=== PATIENT | male | born 1970 | race Caucasian/White ===

== ENCOUNTER 2025-05-29 08:46 | Outpatient (CLI) | payer BC, SELFPAY ==
[2025-05-29 13:16] LABS: Microscopic, Urine URINE MICROSCOPIC (MICROSCOPIC)
[2025-05-29 14:09] LABS: Hematocrit 46.2 % (42.0-52.0); Hemoglobin 14.9 g/dL (14.1-18.0); Immature Granulocytes % 0.4 %; Mean Corpuscular HGB Conc 32.3 g/dL (31.8-35.4); Mean Corpuscular Hemoglobin 29.5 pg (27.0-31.2); Mean Corpuscular Volume 91.5 fl (80-94); Nucleated Red Blood Cells % 0 %; Platelet Count 255 K/mm3 (142-424); Red Blood Count 5.05 M/mm3 (4.60-6.20); Red Cell Distribution Width-SD 46.3 fL; White Blood Count 5.3 K/mm3 (4.8-10.8)
[2025-05-29 14:35] LABS: Albumin Level 4.5 g/dl (3.5-5.0); Chloride 101 mmol/L (98-107); Potassium 4.8 mmoL/L (3.5-5.1); Sodium 135 mmol/L (136-145)
[2025-05-29 14:38] LABS: Alanine Aminotransferase 33 U/L (12-78); Albumin/Globulin Ratio 2.3 (1.1-1.8); Alkaline Phosphatase 59 U/L (38-126); Anion Gap 11.8 mEq/L (5-15); Aspartate Amino Transferase 31 U/L (17-59); Bilirubin,Total 0.2 mg/dl (0.2-1.3); Blood Urea Nitrogen 19 mg/dl (9-20); Carbon Dioxide 27 mmol/L (22.0-30.0); Cholesterol 150 mg/dl (140-200); Creatinine,Serum 0.90 mg/dl (0.66-1.25); Estimated Glomerular Filt Rate 88 ml/min (>60); GFR (African American) 106 ML/MIN (>60); Globulin 2.0 g/dL (1.3-3.2); Glucose 77 mg/dl (74-100); Iron 107 ug/dL (49-181); Total Protein,Serum 6.5 g/dl (6.3-8.2); Triglycerides 54 mg/dl (30-150)
[2025-05-29 14:39] LABS: Calcium 8.8 mg/dl (8.4-10.2); HDL Cholesterol 45 mg/dl (40-60)
[2025-05-29 14:58] LABS: 25-OH Vitamin D, Total 43.0 ng/mL (30-100); Free T4 (Free Thyroxine) 1.50 ng/dl (0.78-2.19)
[2025-05-29 15:04] LABS: Total Iron Binding Capacity 272 ug/dL (261-462)
[2025-05-29 15:10] LABS: Thyroid Stimulating Hormone 0.72 uIU/mL (0.465-4.68)
[2025-05-29 15:14] LABS: Ferritin 66.1 ng/ml (17.9-464)
[2025-05-29 15:32] LABS: Hepatitis C Ab Qual. W/ RFX NEGATIVE (Negative)
[2025-05-29 17:03] LABS: Vitamin B12 483 pg/mL (239-931)
[2025-05-29 17:46] LABS: Hemoglobin A1C 5.3 % (4.0-6.0)
[2025-05-29 19:04] LABS: Bilirubin,Urine Negative (Negative); Color,Urine YELLOW (Yellow); Glucose,Urine (UA) Negative (Negative); Ketones,Urine TRACE (Negative); Leukocyte Esterase,Urine Negative (Negative); PH,Urine 6.0 (5.0-8.5); Protein,Urine Negative (Negative); Specific Gravity, Urine 1.025 (1.005-1.030); Urobilinogen,Urine 0.2 EU/dl (0.2)
[2025-05-29 19:24] LABS: Amorphous Sediment,Urine 3+ /lpf; Bacteria,Urine 2+ /lpf
[2025-05-30 09:20] LABS: Testosterone,Total 521 ng/dL (264-916)
--- OUTSIDE RECORDS SUMMARY | 2025-05-30 13:45 | XMS_ITS | Clinical Summary ---
[facility] Organization [facility] Address [address] [place] [address] Care Team Providers Care Gastroenterology Technician Name Role Phone Jo Bacon APRN Primary Care Provide r Allergies Active Allergy Reactions Criticality Noted Date Comments Amoxicillin Other (See Comments) 05/13/2016 Severe Headache Medications fluticasone (FLONASE) 50 MCG/ACT nasal spray into each nostril daily. 03/20/2013 Active lisinopril (PRINIVIL,ZESTR IL) 20 MG tablet Take 1 tablet by mouth Daily. 12/31/2022 Active Social History Tobacco Use Types Packs/Day Years Used Date Smoking Tobacco: Never Abuse Screen Answer Date Recorded Unsafe at Home or Work/School Not on file Feels Threatened by Someone? Not on file 08/2023 Does Anyone Keep You from Co ntacting Others or Doint Things Outside the Home? Not on file 08/03/2023 Physical Sign of Abuse Present Not on file 1 Housing Stability Answer Date Recorded Current Living Arrangements Not on file 07/24 Potentially Unsafe Housing Conditions Not on jacob e 08/03/2023 Family and Community Support Answer Mil e Recorded Help with Day-to-Day Activities Not on file 08/03/2023 Lonely or Isolated Not on file 08/03/2023 Employment Answer Date Recorded Do you want help finding or keeping work or a bert b? Not on file 08/03/2023 Disabilities Answer Date Recorded Concentrating, Remembering, or Making Decisions Difficulty Not on file 08/03/2023 Doing Errands Independently Difficulty Not on fi le 08/03/2023 Education Answer Date Recorded Help with school or training? Not on file Preferred Language Not on file 08/03/2023 Sex and Gender Information Value Date Recorded Sex Assigned at Not on file Legal Sex Male 11:56 AM EDT Gender Identity Not on file Sexual Orientation Not on file Last Filed Vital Signs Vital Sign Reading Time Taken Comments Blood Pressure 132/85 04/26/2023 6:30 PM EDT Pulse 66 04/26/2023 6:30 PM EDT Temperature 36.7 C (98 F) 04/26/2023 6:30 PM EDT Respiratory Rate 16 04/26/2023 6:30 PM EDT Oxygen Saturation 97% 04/26/2023 6:30 PM EDT Inhaled Oxygen Concentration - - Weight 99.8 kg (220 lb) 04/26/2023 6:30 PM EDT Height 185.4 cm (6' 1 ) 04/26/2023 6:30 PM EDT Body Mass Index 29.03 04/26/2023 6:30 PM EDT Plan of Treatment Health Maintenance Due Date Last Done Comments ANNUAL PHYSICAL 1971 HEPATITIS C SCREENING 1971 COLOGUARD 2016 COLON CANCER SCREENING 5 YEAR SIGMOIDOSCOPY 2016 COLONOSCOPY [address] CANCER SCREENING 2016 CT COLONOGRAPHY 2016 FECAL OCCULT BLOOD TEST 2016 FIT Testing (1 year) 2016 Pneumococcal Vaccine 50+ (1 of 1 - PCV) 2021 ZOSTER VACCINE (1 of 2) 2021 COVID-19 Vaccine (1 - season) 2024 INFLUENZA VACCINE 07/24/2025 TDAP/TD VACCINES (2 - Td or Tdap) 04/25/[id number] [facility] PPO Member Subscriber Plan / Payer (Ef fective 2012-Present) Name:Ran Adrian Relation to Subscriber:Self Name:Ran Adrian Payer ID:[id number] (NAIC) Type:Not on file Address: [address] [place] [id number] Care Teams Gastroenterology Technician Relationship Specialty Start Date End Date Jo Bacon APRN PCP - General Family Medicine 05/13/16
--- OUTSIDE RECORDS SUMMARY | 2025-05-30 13:45 | XMS_ITS | Clinical Summary ---
Author Organization [facility] Address [address] [place] [address] Care Team Providers Care Art Tracer Name Role Phone Gregoria Henderson NP Primary Care Provider Allergies Active Allergy Reactions Criticality Noted Date Comments Amoxicillin Headache 05/13/2016 Annotation - [id number]: painful headaches Severe Headache Medications cetirizine (ZyrTEC) 10 MG tablet Take 10 mg by mouth 1 (one) time each day. Active tadalafil (Cialis) 5 MG tablet Take 5 mg by mouth 1 (one) time each day. Active lisinopril 20 MG tabletIndicatio ns:Hypertension Take 1 tablet by mouth in the morning. 90 tablet 1 5 Active fluticasone (Flonase) 50 MCG/ACT nasal spray Administer 1 spray into each nostril in the morning. Shake gently. Before first use, prime pump. After use, clean tip and replace cap. 48 g 1 5 Active Active Problems Problem Noted Date Diagnosed Date Body mass index 25-29 - overweight 12/23/2023 Chews tobacco 12/23/2023 Seizure 04/08/2021 Essential hypertension 02/03/2018 Overview (12/23/2023): Transitioned From: High blood pressure Asthma 06/07/2016 Allergic rhinitis 12/26/2015 Overview (10/03/2020): Description: (PL) Gastro-esophageal reflux disease without esophag itis 12/26/2015 Overview (10/03/2020): Description: (PL) Low back pain 12/26/2015 Peripheral nerve disease 12/26/2015 Resolved Problems Problem Noted Date Diagnosed Date Resolved Date Rash 04/04/2020 12/24/2024 Folliculitis 10/12/2019 12/24/2024 History of clinical finding in subject 05/26/2016 12/24/2024 Dysphagia 02/06/2016 12/24/2024 Encounters Date Type Department Care Team Description 03/04/2025 Refill [facility] [address] [place] [address] [address] [place] [address] Gregoria Henderson, LISANDRO Hypertension from Last 3 Months Immunizations Immunization Administration Dates Next Due Tdap 04/25/2019 Zoster, Recombinant 10/15/2024,08/17/2024 Family History Medical History Relation Name Comments Hypertension Father hernan Melanoma Father hernan Thyroid cancer Mother Relation Name Status Comments Father hernan Mother Social History Tobacco Use Types Packs/Day Years Used Date Smoking Tobacco: Former Smokeless Tobacco: Former Snuff Comments:stopped using tobac co 11-24-2023 Alcohol Use Standard Drinks/Week Comments Never 0 (1 standard drink = 0.6 oz pur e alcohol) [facility] Utilities Answer Date Recorded In the past 12 months has [employer], gas, oil, or water [employer] threatened to shut off services in your home? Patient declined 12/24/2024 AUDIT-C Answer Date Recorded Q1: How often do you have a drink containing alc ohol? Never 10/03/2020 Q2: How many drinks containi ng alcohol do you have on a typical day when you are drinking? Not asked 10/03/2020 Q3: How often do you have six or more drinks on one occasion? Never 10/03/2020 Overall Financial Resource Strain (CARDIA) Answe r Date Recorded How hard is it for you to pa y for the very basics like food, housing, medical care, and heating? Patient declined 12/24/2024 Hunger Vital Sign Answer Date Recorded Within the past 12 months, y ou worried that your food would run out before you got the money to buy more. Patient declined Within the past 12 months, t he food you bought just didn't last and you didn't have money to get more. Patient declined 12/2024 PRAPARE - Transportation Answer Date Re corded In the past 12 months, has l ack of transportation kept you from medical appointments or from getting medications? Patient declined 12/24/2024 In the past 12 months, has l ack of transportation kept you from meetings, work, or from getting things needed for daily living? Patient declined 12/24/2024 Housing Stability Vital Sign Answer Mil e Recorded In the last 12 months, was t here a time when you were not able to pay the mortgage or rent on time? Patient declined 12/25/19 25 Number of Times Moved in the Last Year Not on fi le 12/24/2024 At any time in the past 12 m [facility], were you homeless or living in a intermediate (including now)? Patient declined 12/24/2024 Depression Answer Date Recorded PHQ-2 Total Score 0 12/24/2024 Interpersonal Safety Answer Date Record ed How often does anyone, muna winnie family and friends, physically hurt you? Patient Refused 12/24/2024 How often does anyone, inclana zhou family and friends, threaten you with harm? Patient Refused 12/24/2024 Sex and Gender Information Value Date Recorded Sex Assigned at Not on file Legal Sex Male 9:43 PM EDT Gender Identity Not on file Sexual Orientation Not on file Last Filed Vital Signs Vital Sign Reading Time Taken Comments Blood Pressure 134/84 12/24/2024 9:39 AM EST Pulse 65 12/24/2024 9:39 AM EST Temperature 36.4 C (97.5 F) 12/24/2024 9:39 AM EST Respiratory Rate 18 04/08/2021 10:13 AM EDT Oxygen Saturation 99% 12/24/2024 9:39 AM EST Inhaled Oxygen Concentration - - Weight 97.5 kg (215 lb) 12/24/2024 9:39 AM EST Height 185.4 cm (6' 1 ) 12/24/2024 9:39 AM EST Body Mass Index 28.37 12/24/2024 9:39 AM EST Plan of Treatment Health Maintenance Due Date Last Done Comments CT Colonography 1971 FIT-DNA (Cologuard) 1971 FIT 1971 FOBT 1971 Sigmoidoscopy 1971 Hepatitis B Screening 1989 Pneumococcal Vaccine: 50+ Years (1 of 2 - PCV) 1990 Influenza Vaccine (#1) 2025 3 (Patient Refused), 10/09/2021 (Patient Refused) Diabetes Screening 12/25/2027 12/24/2024, 0 12/24/2024, 12/23/2023, Additional history exists Colonoscopy 04/15/2028 04/15/2023 Colorectal Cancer Screening 04/15/2028 DTaP/Tdap/Td Vaccines (2 - Td or Tdap) 04/25/2029 04/25/2019 Lipid Panel 12/24/2029 12/24/2024, 03/10/2023, 01/07/2023, Additional history exists Hepatitis C Screening Completed 10/09/2021 Zoster Vaccines Completed 10/15/2024, 08/17/2024 Depression Risk Screening Completed 12/24/2024 SDOH Screening Completed 12/24/2024 COVID-19 Vaccine Discontinued HIB Vaccines Aged Out No longer eligi ble based on patient's age to complete this topic HIV Screening Discontinued HPV Vaccines Aged Out No longer eligi ble based on patient's age to complete this topic Hepatitis A Vaccines Aged Out No long er eligible based on patient's age to complete this topic Hepatitis B Vaccines Discontinued IPV Vaccines Aged Out No longer eligi ble based on patient's age to complete this topic MMR Vaccines Discontinued Meningococcal B Vaccine Aged Out No l onger eligible based on patient's age to complete this topic Meningococcal Vaccine Aged Out No nathan brenda eligible based on patient's age to complete this topic Rotavirus Vaccines Aged Out No longer eligible based on patient's age to complete this topic Procedures Procedure Name Priority Date/Time Associated Diagnosis Comments CMP COMPREHENSIVE METABOLIC PANEL Routine 12/24/2024 10:19 AM EST Essential hypertension LIPID PANEL Routine 12/24/2024 10:19 AM EST Essential hypertension Body mass index 25-29 - overweight <28.0-28.9> HEPATITIS C ANTIBODY Routine 10/09/2021 10:46 AM EST Hepatitis C screening from Last 3 Months or Most Recently Relevant to Health Maintenance Results * Lipid panel (12/24/2024 10:19 AM EST) TRIGLYCERIDES 75 <=149 mg/dL [facility] CHOLESTEROL, TOTAL 193 <=199 mg/dL [facility] HDL CHOLESTEROL 54 40 - 60 mg/dL [facility] LDL-CHOLESTEROL 124.0 <=188.0 mg/dL [facility] CHOL/HDLC RATIO 3.57 0.00 - 4.99 Ratio [facility] CHOLESTEROL VLDL CALCULATION 15 mg/dL [facility] LDL/HDL RATIO 2.30 Ratio [facility] Blood Venous blood specimen / Unknown 12/24/2024 10:19 AM EST 12/24/2024 7:36 PM EST Narrative Resulting Agency Comment Performing Organization Information: Site ID: [id number] Name: [facility] Address: [address] [place] [id number] Director: Dr. Rod Cardenas Gregoria Henderson SINTERING PRESS OPERATOR LAB BLOOD ORDERABLES Final Result Performing Organization Address City/State/[facility] Co de Phone Number [facility] [address] [place] [address], * (ABNORMAL) Comprehensive metabolic panel (12/24/2024 10:19 AM EST) GLUCOSE 97 74 - 109 mg/dL [facility] UREA NITROGEN (BUN) 20 7 - 25 mg/dL [facility] CREATININE 0.80 0.70 - 1.30 mg/dL [facility] BUN/CREATININE RATIO 25.0(H) 6.0 - 22.0 [facility] SODIUM 141 136 - 145 mmol/L [facility] POTASSIUM 5.1 3.5 - 5.1 mmol/L [facility] CHLORIDE 102 98 - 110 mmol/L [facility] CARBON DIOXIDE 30 21 - 31 mmol/L [facility] ANION GAP 9.0 2.0 - 11.0 [facility] CALCIUM 9.9 8.6 - 10.2 mg/dL [facility] PROTEIN, TOTAL 7.0 6.4 - 8.9 Gram/dL [facility] ALBUMIN 4.7 3.5 - 5.2 Gram/dL [facility] GLOBULIN 2 Gram/dL [facility] A/G Ratio 2.0(H) 1.0 - 1.8 [facility] BILIRUBIN, TOTAL 0.5 0.3 - 1.0 mg/dL [facility] ALKALINE PHOSPHATASE 56 34 - 104 Units/Lite r [facility] AST 28 13 - 39 Units/Lite r [facility] ALT 40(H) <=32 Units/Lite r [facility] EGFR 106 >=60 mL/min/1.7 3m2 [facility] Comment: eGFR calculation performed using the CKD-EPI 2020 equation (race variable excluded) Blood Venous blood specimen / Unknown 12/24/2024 10:19 AM EST 12/24/2024 7:36 PM EST Narrative Resulting Agency Comment Performing Organization Information: Site ID: [id number] Name: [facility] Address: [address] [place] [phone] Director: Dr. Rod Cardenas us Gregoria Henderson SINTERING PRESS OPERATOR LAB BLOOD ORDERABLES Final Result [facility] [address] [place] [address], * Hepatitis C antibody (10/09/2021 10:46 AM EST) HEPATITIS C ANTIBODY (REFL) NON-REACT JIGAR NON-REACT JIGAR [facility] Comment: Our records indicate that you have ordered a client custom reflex order code. Only the initial test was performed because we do not have a client custom reflex testing authorization request form on file for you. Please contact a manager client support if you would like additional testing done on this patient or contact your pre sales systems engineer to obtain a client custom reflex testing authorization request form. SIGNAL TO CUT-OFF 0.01 <1.00 [facility] Comment: HCV antibody was non-reactive. There is no laboratory evidence of HCV infection. In most cases, no further action is required. However, if recent HCV exposure is suspected, a test for HCV RNA (test code 24325) is suggested. For additional information please refer to http://education.Seade[employer]-Fermen[employer].GardenStory/faq/EHC00a9 (This link is being provided for informational/ educational purposes only.) Blood Venous blood specimen / Unknown 10/09/2021 10:46 AM EST 10/09/2021 7:28 PM EST Narrative [facility] - 10/10/2021 12:35 PM EST FASTING:YES FASTING: YES Resulting Agency Comment Performing Organization Information: Site ID: [id number] Name: [facility] Address: [address] [place] [address] Director: Adilson Cabello M.D. Gregoria Henderson SINTERING PRESS OPERATOR LAB BLOOD ORDERABLES Final Result [facility] [address] [place] [address], from Last 3 Months or Most Recently Relevant to Health [place] [address] [facility] Care Teams Art Tracer Relationship Specialty Start Date End Date Gregoria Henderson, LISANDRO [address] [place] [address] [address] [place] [address] PCP - General Family Medicine 10/02/20
== END 2025-05-29 23:59 | disposition home or self-care (01) ==
LOC: LAB.DROPOF 05-30 13:42
PROVIDERS: PCP Nurse Practitioner Family; Visit Provider Nurse Practitioner Family
DX: I10 Essential (primary) hypertension (principal); Z76.89 Persons encountering health services in other specified circumstances; N52.9 Male erectile dysfunction, unspecified; Z13.220 Encounter for screening for lipoid disorders; Z11.59 Encounter for screening for other viral diseases; Z11.4 Encounter for screening for human immunodeficiency virus [HIV]; L81.8 Other specified disorders of pigmentation; R53.83 Other fatigue; R41.3 Other amnesia; E11.9 Type 2 diabetes mellitus without complications; G47.33 Obstructive sleep apnea (adult) (pediatric)
CPT/HCPCS: 80053; 80061; 81001; 82306; 82607; 82728; 83036; 83540; 83550; 84156; 84403; 84439; 84443; 85025; 86803; 87086; 87389; G0103

== ENCOUNTER 2025-09-09 15:00 | Outpatient (CLI) | payer BC, SELFPAY | END 2025-09-09 23:59 | disposition home or self-care (01) | LOC: LAB.DROPOF 09-10 10:45 | PROVIDERS: PCP Nurse Practitioner Family; Visit Provider Nurse Practitioner Family | DX: J02.9 Acute pharyngitis, unspecified (principal) | CPT/HCPCS: 87070 ==